=== PATIENT | female | born 1965 ===

== ENCOUNTER 2022-04-26 11:15 | Day surgery (SDC) | payer OTHER ==
[~2022-04-26] VITALS: Ht 162.6 cm; Wt 131.5 kg
[~2022-04-26 11:15] MED LIST: BUTALBITAL-ACE1 EACH; LISINOPRIL-HCT1 EACH; PROAIR HFA8.5 GM; SINGULAIR10 MG
== END 2022-04-26 18:35 | disposition home or self-care (01) ==
LOC: U 11:15 → CIR.AMB 11:15
PROVIDERS: ATTEND Obstetrics & Gynecology Obstetrics
DX: N85.01 Benign endometrial hyperplasia (principal); Z20.822 Contact with and (suspected) exposure to COVID-19; Z88.8 Allergy status to other drugs, medicaments and biological substances; I10 Essential (primary) hypertension; J45.909 Unspecified asthma, uncomplicated; Z71.6 Tobacco abuse counseling; F17.210 Nicotine dependence, cigarettes, uncomplicated; G43.909 Migraine, unspecified, not intractable, without status migrainosus; E66.8 Other obesity